=== PATIENT | male | born 1990 | race Caucasian/White ===

== ENCOUNTER 2017-02-01 22:17 | Emergency (ER) | payer OTHER, BC ==
[~2017-02-01] VITALS: Ht 180.3 cm; Wt 76.0 kg
[2017-02-02 00:50] VITALS: BP 121/91
== END 2017-02-02 00:51 | disposition home or self-care (01) ==
LOC: EDBD 22:17 → EME 22:17
PROC: 0HQ1XZZ Repair Face Skin, External Approach (ICD-10-PCS; principal; 2017-02-01)
DX: S09.90XA Unspecified injury of head, initial encounter (principal); S01.81XA Laceration without foreign body of other part of head, initial encounter; S99.912A Unspecified injury of left ankle, initial encounter; V00.211A Fall from ice-skates, initial encounter; Y93.21 Activity, ice skating; Z87.891 Personal history of nicotine dependence
CPT/HCPCS: 70450; 70486; 73610; 99281; 99284

== ENCOUNTER 2017-02-07 15:41 | Emergency (ER) | payer OTHER, BC ==
[~2017-02-07] VITALS: Ht 180.3 cm; Wt 79.4 kg
[2017-02-07 15:51] VITALS: BP 144/79
== END 2017-02-07 17:37 | disposition home or self-care (01) ==
LOC: EME 15:41
DX: S01.81XD Laceration without foreign body of other part of head, subsequent encounter (principal); Z48.02 Encounter for removal of sutures; S93.402D Sprain of unspecified ligament of left ankle, subsequent encounter; Z02.79 Encounter for issue of other medical certificate
CPT/HCPCS: 99281; 99283